=== PATIENT | male | born 1970 | race Caucasian/White ===

== ENCOUNTER 2021-03-07 13:25 | Emergency (ER) | payer BC, OTHER ==
[2021-03-07 14:08] LABS: HEMOGLOBIN 15.1 gm/dl (14.0-17.5); RED BLOOD COUNT 5.29 M/UL (4.20-5.50); WHITE BLOOD COUNT 6.6 K/UL (4.5-11.0)
[2021-03-07 14:35] LABS: BUN/CREATININE RATIO 13 (0-10)
[2021-03-07] MEDS ORDERED: ZOFRAN4 MG PO (14:59)
== END 2021-03-07 17:33 | disposition home or self-care (01) ==
LOC: ER1 13:25
PROVIDERS: Physician Assistant
DX: K21.9 Gastro-esophageal reflux disease without esophagitis (principal); I10 Essential (primary) hypertension; Z79.899 Other long term (current) drug therapy
CPT/HCPCS: 71045; 80053; 81001; 82550; 82553; 83690; 83874; 84484; 85025; 93005; 99284; Q9967

== ENCOUNTER 2021-04-19 08:51 | Emergency (ER) | payer BC ==
[~2021-04-19 08:51] MED LIST: ZOFRAN4 MG PO
[2021-04-19 11:40] LABS: HEMOGLOBIN 15.1 gm/dl (14.0-17.5); RED BLOOD COUNT 5.27 M/UL (4.20-5.50); WHITE BLOOD COUNT 8.8 K/UL (4.5-11.0)
[2021-04-19 11:57] LABS: BUN/CREATININE RATIO 16 (0-10)
[2021-04-19] MEDS ORDERED: HYDROCODON-ACE1 EAC4 PO (12:22)
[2021-04-19] MEDS ORDERED: FLOMAX0.4 MG PO (12:30)
== END 2021-04-19 12:33 | disposition home or self-care (01) ==
LOC: ER1 08:51
PROVIDERS: Physician Assistant
DX: N13.2 Hydronephrosis with renal and ureteral calculous obstruction (principal); Z91.041 Radiographic dye allergy status
CPT/HCPCS: 80053; 81001; 83690; 85025; 96372; 99284; J1885